=== PATIENT | female | born 1955 | race Caucasian/White ===

== ENCOUNTER 2017-10-23 11:25 | Outpatient (CLI) | payer OTHER | END 2017-10-23 11:36 | disposition home or self-care (01) | LOC: RAD 11:25 | DX: I50.9 Heart failure, unspecified (principal) ==

== ENCOUNTER 2018-03-23 13:37 | Outpatient (CLI) | payer OTHER | END 2018-03-23 13:46 | disposition home or self-care (01) | LOC: MAMO-SONO 13:37 → NUCLEAR 14:00 → MAMO-SONO 15:15 | DX: Z12.31 Encounter for screening mammogram for malignant neoplasm of breast (principal); N60.11 Diffuse cystic mastopathy of right breast; M81.0 Age-related osteoporosis without current pathological fracture ==